=== PATIENT | female | born 1980 ===

== ENCOUNTER 2023-11-16 02:15 | Emergency (ER) | payer MEDICAID, OTHER ==
[2023-11-16] MEDS: diphenhydrAMINE 25 MG Cap PO ONE (02:35)
[2023-11-16] MEDS: predniSONE 20 MG Tab PO ONE (02:35)
[2023-11-16] MEDS: Famotidine 20 MG/2 ML SDV IVPUSH ONE ×2 (02:36→02:39)
== END 2023-11-16 03:30 | disposition home or self-care (01) ==
LOC: MW.ED 02:15
DX: R09.89 Other specified symptoms and signs involving the circulatory and respiratory systems (principal); I10 Essential (primary) hypertension; Z79.899 Other long term (current) drug therapy; Z75.8 Other problems related to medical facilities and other health care; Z88.8 Allergy status to other drugs, medicaments and biological substances
CPT/HCPCS: 96374; 99282; A9270; J3490; 99284